=== PATIENT | male | born 1990 | race Caucasian/White ===

== ENCOUNTER 2017-10-29 21:58 | Emergency (ER) | payer OTHER ==
[2017-10-29] MEDS ORDERED: Ondansetron INJ* 2 MG/ML VIAL IV ONE (22:16)
[2017-10-29] MEDS: NS 0.9% 1000 ML* 2,000 ML IV ONE (22:31)
[2017-10-30] MEDS ORDERED: Ondansetron INJ* 2 MG/ML VIAL IV ONE (00:23)
[2017-10-30 01:55] VITALS: BP 118/62
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
== END 2017-10-30 01:49 | disposition home or self-care (01) ==
LOC: ED 21:58
DX: F10.129 Alcohol abuse with intoxication, unspecified (principal); R11.2 Nausea with vomiting, unspecified; F17.210 Nicotine dependence, cigarettes, uncomplicated
CPT/HCPCS: 96361; 96374; 99282; J2405

== ENCOUNTER 2018-03-02 12:53 | Emergency (ER) | payer OTHER ==
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
[2018-03-02 15:07] LABS: ABS Basophils 0.1 10^3/ul (0-0.2); ABS Eosinophils 0.1 10^3/ul (0-0.6); ABS Lymphocytes 1.5 10^3/ul (1.0-4.8); ABS Monocytes 0.9 10^3/ul (0-0.8); ABS Neutrophils 9.4 10^3/ul (1.5-7.7); ABS Nucleated RBC 0 10^3/ul; Eosinophil % 0.8 % (0-6); Hematocrit 48 % (42-52); Hemoglobin 16.7 g/dl (14.0-18.0); Lymphocyte % 12.6 % (25-47); Mean Corpuscular HGB Conc 35 g/dl (31-36); Mean Corpuscular Hemoglobin 32 pg (27-31); Mean Corpuscular Volume 94 fL (80-94); Mean Platelet Volume 10.2 um3 (7.4-10.4); Nucleated Red Blood Cells % 0; Platelet Count 159 10^3/ul (150-450); Red Blood Count 5.17 10^6/ul (4.00-5.40); Red Cell Distribution Width 13 % (10.5-15); White Blood Count 11.9 10^3/ul (3.5-10.8)
[2018-03-02 15:16] LABS: INR 0.95 (0.77-1.02)
[2018-03-02 15:52] LABS: EGFR Non-African American 69.2 (>60)
[2018-03-02] MEDS ORDERED: Iohexol 300* (CONTRAST) 10 ML SDV IV ONE (16:05)
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
[2018-03-02 17:29] VITALS: BP 122/69
== END 2018-03-02 17:28 | disposition home or self-care (01) ==
LOC: ED 12:53
DX: S61.219A Laceration without foreign body of unspecified finger without damage to nail, initial encounter (principal); S61.422A Laceration with foreign body of left hand, initial encounter; S61.421A Laceration with foreign body of right hand, initial encounter; R07.89 Other chest pain; T14.8XXA Other injury of unspecified body region, initial encounter; V53.5XXA Driver of pick-up truck or van injured in collision with car, pick-up truck or van in traffic accident, initial encounter; W25.XXXA Contact with sharp glass, initial encounter; Y92.410 Unspecified street and highway as the place of occurrence of the external cause; F17.200 Nicotine dependence, unspecified, uncomplicated
CPT/HCPCS: 36415; 71260; 74177; 80053; 85025; 85610; 85730; 99283; Q9967

== ENCOUNTER 2018-03-31 17:19 | Emergency (ER) | payer SELFPAY ==
--- NOTE | 2018-03-31 17:28 | UC ---
[facility] HPI - HPI Summary HPI Summary: 28 yo male presents with complaints of an "intestinal amira infection". He tells me that about 6 months ago he noticed some generalized cramping in his abdomen and red/raw skin around his penis. He is adamant that his penile rash was yeast, but it would come and go over the course of 3 months. Then, 3 months ago he became concerned for STIs as he had some anal itching as well and noticed some burning with urination. He was seen and treated for GC/C and test results for RPR, HIV, hep, GC/C were all negative - per pt. Since that time his abdominal cramping has gotten worse. He says that when he takes probiotics his cramping is significantly improved, but when he eats gluten his cramping is worse. He tells me he has done a lot of research online and believes he has an intestinal amira infection. He does admit to diarrhea intermittently over the last 3 months. Denies fever, chills, SOB, chest pain, n/v, flank pain, dysuria, or blood in stool. - History of Current Complaint Stated Complaint: MOUTH COMPLAINT Time Seen by Provider: 03/31/18 17:28 Hx Obtained From: Patient Onset/Duration: Gradual Onset Pain Intensity: 0 Pain Scale Used: 0-10 Numeric - Allergies/Home Medications Allergies/Adverse Reactions: Allergies Allergy/AdvReac Type Severity Reaction Status Date / Time No Known Allergies Allergy Verified 03/31/18 17:41 Home Medications: Home Medications Finasteride TAB* [Proscar TAB*] 5 mg PO QAM 03/31/18 [History Confirmed 03/31/18 ] PMH/Surg Hx/FS Hx/Imm Hx - Additional Past Medical History Additional PMH: ADHD Other History Of: Negative For: Anticoagulant Therapy - Surgical History Surgical History: None - Family History Known Family History: Positive: Unknown - Social History Occupation: Employed Full-time Lives: Alone Alcohol Use: Weekly Substance Use Type: Cocaine, Heroin, Marijuana Smoking Status (MU): Light Every Day Tobacco Smoker Review of Systems Constitutional: Negative Skin: Negative Respiratory: Negative Cardiovascular: Negative Gastrointestinal: Abdominal Pain, Diarrhea Genitourinary: Negative Neurovascular: Negative Neurological: Negative Psychological: Negative All Other Systems Reviewed And Are Negative: Yes Physical Exam - Summary Physical Exam Summary: GENERAL: NAD. WDWN. No pain distress. SKIN: No rashes, sores, lesions, or open wounds. NECK: Supple. Nontender. No lymphadenopathy. CHEST: CTAB. No r/r/w. No accessory muscle use. Breathing comfortably and in no distress. CV: RRR. Without m/r/g. Pulses intact. Cap refill <2seconds ABDOMEN: Soft. NTTP. No distention or guarding. No organomegaly. No CVA tenderness. Bowel sounds present NEURO: Alert. CN II-XII grossly intact. PSYCH: Age appropriate behavior. Triage Information Reviewed: Yes Vital Signs: Vital Signs: Temp Pulse Resp BP Pulse Ox 98.2 F 98 16 98/65 100 03/31/18 17:37 03/31/18 17:37 03/31/18 17:37 03/31/18 17:37 03/31/18 17:37 Vital Signs Reviewed: Yes Dental Complaint Course/Dx - Course Course Of Treatment: Discussed case with Dr. Garsia. Will treat with Diflucan 200mg daily for 1 week and have him f[facility] as he does not have a PCP. Pt was agreeable to this plan. - Differential Dx/Diagnosis Provider Diagnoses: Yeast infection Discharge - Sign-Out/Discharge Documenting (check all that apply): Patient Departure - Discharge Plan Condition: Stable Disposition: HOME Prescriptions: Fluconazole 100 MG TAB* [Diflucan 100 MG TAB*] 200 mg PO DAILY #14 tab Patient Education Materials: Yeast Infection (ED) Referrals: Edel Jiang MD [Primary Care Provider] - [facility] [Outside] - 1 Week Additional Instructions: If you develop a fever, shortness of breath, chest pain, new or worsening symptoms - please call your PCP or go to the ED. 1) Please follow up with [facility] in 1 week - Billing Disposition and Condition Condition: STABLE Disposition: Home
[2018-03-31 17:41] VITALS: BP 98/65
[2018-04-01 14:20] LABS: ABS Basophils 0 10^3/ul (0-0.2); ABS Eosinophils 0.3 10^3/ul (0-0.6); ABS Lymphocytes 1.4 10^3/ul (1.0-4.8); ABS Monocytes 0.7 10^3/ul (0-0.8); ABS Neutrophils 4.6 10^3/ul (1.5-7.7); ABS Nucleated RBC 0 10^3/ul; Eosinophil % 3.8 % (0-6); Hematocrit 45 % (42-52); Hemoglobin 15.6 g/dl (14.0-18.0); Lymphocyte % 19.8 % (25-47); Mean Corpuscular HGB Conc 34 g/dl (31-36); Mean Corpuscular Hemoglobin 32 pg (27-31); Mean Corpuscular Volume 94 fL (80-94); Mean Platelet Volume 11.2 um3 (7.4-10.4); Nucleated Red Blood Cells % 0.1; Platelet Count 149 10^3/ul (150-450); Red Blood Count 4.83 10^6/ul (4.00-5.40); Red Cell Distribution Width 13 % (10.5-15); White Blood Count 6.9 10^3/ul (3.5-10.8)
[2018-04-01 14:28] LABS: EGFR Non-African American 80.1 (>60)
== END 2018-03-31 18:20 | disposition home or self-care (01) ==
LOC: UCEAST 17:19
DX: B37.49 Other urogenital candidiasis (principal); F17.200 Nicotine dependence, unspecified, uncomplicated
CPT/HCPCS: 36415; 80053; 85025; 99212; G0463

== ENCOUNTER 2018-04-17 21:48 | Emergency (ER) | payer SELFPAY ==
[2018-04-17] MEDS ORDERED: NS 0.9% 1000 ML* 1,000 ML IV ONE (23:21)
[2018-04-17] MEDS ORDERED: Ketorolac INJ* 30 MG/ML 1 ML VIAL IV PUSH ONE (23:21)
--- NOTE | 2018-04-17 23:22 | ED ---
Abdominal Pain/Male - HPI Summary HPI Summary: A 28 y/o male presents to the ED c/o sharp abdominal pain reaching 5/10 in severity. As per triage, "Pt states that he has an infection in his GI tract. Pt states that he is very uncomfortable with pain and bloating. Pt states that he can't eat glutton or alcohol at this time". According to the patient, he believes he was misdiagnosed with a yeast infection, and instead believes he has a fungal infection in his digestive tract. He stated that he was given anti- fungal medications (7 days worth), but believes he was not prescribed enough. He now feels abdominal pain, bloating and is uncomfortable. He has been experiencing discomfort for the past few months, but the last couple days it has become much more severe. Additionally he feels fatigued and has diarrhea, denies any vomiting, nausea or fever. Has PCP at [place]. - History of Current Complaint Chief Complaint: EDAbdPain Stated Complaint: GI ISSUE/POSS INFECTION Time Seen by Provider: 04/17/18 23:01 Hx Obtained From: Patient Onset/Duration: Sudden Onset, Lasting Weeks, Still Present, Worse Since Timing: Constant Severity Initially: Moderate Severity Currently: Moderate Pain Intensity: 5 Pain Scale Used: 0-10 Numeric Location: Diffuse Radiates: No Character: Sharp Aggravating Factor(s): Nothing Alleviating Factor(s): Nothing Associated Signs And Symptoms: Positive: Diarrhea. Negative: Fever, Nausea, Vomiting - Allergies/Home Medications Allergies/Adverse Reactions: Allergies Allergy/AdvReac Type Severity Reaction Status Date / Time No Known Allergies Allergy Verified 03/31/18 17:41 PMH/Surg Hx/FS Hx/Imm Hx Endocrine/Hematology History: Denies: Hx Anticoagulant Therapy, Hx Blood Disorders, Hx Diabetes Cardiovascular History: Denies: Hx Hypertension Sensory History: Denies: Hx Legally Blind, Hx Deafness Opthamlomology History: Denies: Hx Legally Blind - Surgical History Surgery Procedure, Year, and Place: T&A - Immunization History Date of Tetanus Vaccine: unknown Infectious Disease History: No Infectious Disease History: Denies: Hx of Known/Suspected MRSA, Traveled Outside the [place] in Last 30 Days - Family History Known Family History: Positive: Other - TIA and Colon Cancer Negative: Hypertension, Diabetes - Social History Alcohol Use: Weekly Substance Use Type: Reports: Cocaine, Heroin, Marijuana Hx Tobacco Use: Yes Smoking Status (MU): Light Every Day Tobacco Smoker Review of Systems Positive: Fatigue. Negative: Fever Positive: Abdominal Pain, Diarrhea, Other - POSITIVE: Bloating. Negative: Vomiting, Nausea All Other Systems Reviewed And Are Negative: Yes Physical Exam - Summary Physical Exam Summary: VITAL SIGNS: Reviewed. GENERAL: Patient is a well-developed and nourished male who is lying comfortable in the stretcher. Patient is not in any acute respiratory distress. HEAD AND FACE: No signs of trauma. No ecchymosis, hematomas or skull depressions. No sinus tenderness. EYES: PERRLA, EOMI x 2, No injected conjunctiva, no nystagmus. EARS: Hearing grossly intact. Ear canals and tympanic membranes are within normal limits. MOUTH: Oropharynx within normal limits. NECK: Supple, trachea is midline, no adenopathy, no JVD, no carotid bruit, no c- spine tenderness, neck with full ROM. CHEST: Symmetric, no tenderness at palpation LUNGS: Clear to auscultation bilaterally. No wheezing or crackles. CVS: Regular rate and rhythm, S1 and S2 present, no murmurs or gallops appreciated. ABDOMEN: Soft, mild diffuse abdominal tenderness. No signs of distention. No rebound no guarding, and no masses palpated. Bowel sounds are normal. EXTREMITIES: FROM in all major joints, no edema, no cyanosis or clubbing. NEURO: Alert and oriented x 3. No acute neurological deficits. Speech is normal and follows commands. SKIN: Dry and warm Triage Information Reviewed: Yes Vital Signs On Initial Exam: Initial Vitals Temp Pulse Resp BP Pulse Ox 98.2 F 80 19 121/74 100 04/17/18 21:53 04/17/18 21:53 04/17/18 21:53 04/17/18 21:53 04/17/18 21:53 Vital Signs Reviewed: Yes Diagnostics - Vital Signs Vital Signs Temp Pulse Resp BP Pulse Ox 04/17/18 21:53 98.2 F 80 19 121/74 100 - Laboratory Result Diagrams: 04/17/18 23:37 04/17/18 23:37 Lab Statement: Any lab studies that have been ordered have been reviewed, and results considered in the medical decision making process. - CT CT A/P CT Interpretation Completed By: Radiologist - No acute findings. ED PHYSICIAN REVIEWED THIS RADIOLOGY REPORT. Abdominal Pain Fem Course/Dx - Course Course Of Treatment: A 28 y/o male presents to the ED c/o sharp abdominal pain reaching 5/[address] A/P revealed no acute findings. In the ED course , the patient received Toradol, Omnipaque and IV fluids. Patient will be discharged with a diagnosis of abdominal pain. Patient is to follow up with PCP in 1-2 days. Patient is agreeable with this plan. - Diagnoses Provider Diagnoses: Abdominal pain Discharge - Sign-Out/Discharge Documenting (check all that apply): Patient Departure - DISCHARGE - Discharge Plan Condition: Stable Disposition: HOME Patient Education Materials: Acute Abdominal Pain (ED), Abdominal Pain (ED) Referrals: Edel Jiang MD [Primary Care Provider] - 2 Days Additional Instructions: FOLLOW UP WITH PRIMARY CARE IN 1-2 DAYS. RETURN TO ED FOR ANY NEW OR WORSENING SYMPTOMS. - Attestation Statements Document Initiated by Scribe: Yes Documenting Scribe: Anuel Boyce Provider For Whom Scribe is Documenting (Include Credential): Elias Dennis Attestation: Anuel Carbajal, scribed for Fay Mann on 04/18/18 at 0256.
[2018-04-17 23:44] LABS: ABS Basophils 0.1 10^3/ul (0-0.2); ABS Eosinophils 0.3 10^3/ul (0-0.6); ABS Lymphocytes 2.4 10^3/ul (1.0-4.8); ABS Monocytes 0.6 10^3/ul (0-0.8); ABS Neutrophils 3.5 10^3/ul (1.5-7.7); ABS Nucleated RBC 0 10^3/ul; Eosinophil % 3.8 % (0-6); Hematocrit 39 % (42-52); Hemoglobin 13.5 g/dl (14.0-18.0); Lymphocyte % 35.1 % (25-47); Mean Corpuscular HGB Conc 34 g/dl (31-36); Mean Corpuscular Hemoglobin 32 pg (27-31); Mean Corpuscular Volume 94 fL (80-94); Mean Platelet Volume 10.2 um3 (7.4-10.4); Nucleated Red Blood Cells % 0.1; Platelet Count 146 10^3/ul (150-450); Red Blood Count 4.16 10^6/ul (4.00-5.40); Red Cell Distribution Width 13 % (10.5-15); White Blood Count 6.8 10^3/ul (3.5-10.8)
[2018-04-18 00:05] LABS: EGFR Non-African American 86.3 (>60)
[2018-04-18] MEDS ORDERED: Iohexol 300* (CONTRAST) 10 ML SDV IV ONE (00:19)
--- NOTE | 2018-04-18 01:16 | RAD ---
EXAM: CT Abdomen and Pelvis With Intravenous Contrast CLINICAL HISTORY: 28 years old, male; Pain; Abdominal pain; Additional info: Abd pain TECHNIQUE: Axial computed tomography images of the abdomen and pelvis with intravenous contrast. All CT scans at this facility use at least one of these dose optimization techniques: automated exposure control; mA and/or kV adjustment per patient size (includes targeted exams where dose is matched to clinical indication); or iterative reconstruction. Coronal and sagittal reformatted images were created and reviewed. CONTRAST: 100 mL of OMNI 300 administered intravenously. COMPARISON: C/A/P W CT CHEST/ABD/PEL W 03/02/2018 4:18 PM FINDINGS: Lung bases: Lung bases are clear. ABDOMEN: Liver: The liver is of normal size and appearance. No focal hepatic lesion. Gallbladder and bile ducts: No calcified gallstones. No ductal dilatation. Pancreas: The pancreas is of normal size and appearance. No ductal dilation. Spleen: The spleen is of normal size and appearance. Adrenals: Unremarkable. No mass. Kidneys and ureters: The kidneys are of normal size and appearance. No hydronephrosis or nephrolithiasis. Stomach and bowel: No bowel obstruction. No mucosal thickening. PELVIS: Appendix: The appendix is not visualized. No evidence of acute appendicitis. Bladder: The bladder is partially distended with urine. No bladder wall thickening. No calcified bladder stone. Reproductive: Unremarkable as visualized. ABDOMEN and PELVIS: Intraperitoneal space: No free intra-abdominal fluid or air. No mesenteric inflammation. Bones/joints: No acute fracture. No dislocation. Soft tissues: Unremarkable. Vasculature: The abdominal aorta is normal in appearance. No abdominal aortic aneurysm. Lymph nodes: Unremarkable. No enlarged lymph nodes. IMPRESSION: No acute findings.
[2018-04-18 03:55] VITALS: BP 112/53
== END 2018-04-18 03:52 | disposition home or self-care (01) ==
LOC: ED 21:48
DX: R10.9 Unspecified abdominal pain (principal); R19.7 Diarrhea, unspecified; F17.210 Nicotine dependence, cigarettes, uncomplicated; R53.83 Other fatigue
CPT/HCPCS: 36415; 74177; 80053; 82150; 82550; 83605; 83690; 83735; 85025; 86140; 96374; 99282; J1885; Q9967